=== PATIENT | female | born 2000 | race Caucasian/White ===

== ENCOUNTER → 2023-09-07 | Outpatient (CLI) | payer SELFPAY, OTHER ==
--- NOTE | 2023-09-07 13:50 | US_ITS ---
STUDY: ULTRASOUND BREAST - RIGHT REASON FOR EXAM: Female, 22 years old. Right breast pain with erythema.. The patient is 6 weeks . TECHNIQUE: Axial and longitudinal images of the RIGHT breast were performed with a high resolution ultrasound transducer. # OF IMAGES: 67 COMPARISON: None. FINDINGS: RIGHT Breast: There is a 5.3 cm x 4.4 cm x 3.8 cm complex cystic structure at the 7-8 o''clock position of the breast. This corresponds to the palpable abnormality in the area of erythema. A focal abscess should be ruled out. US/Breast Limited Unilateral IMPRESSION: Findings suggestive of an abscess at the 7:00 position of the breast as described. ASSESSMENT CATEGORY: BIRADS Category 2: Benign. A letter regarding these results will be sent to the patient by the facility within 30 days. Electronically Signed: Gregorio Wall MD at 15:51 EDT ,
== END | disposition home or self-care (01) ==
DX: N64.4 Mastodynia (principal)
CPT/HCPCS: 76642